=== PATIENT | male | born 1985 | race Caucasian/White ===

== ENCOUNTER 2018-12-02 18:56 | Emergency (ER) | payer BC, OTHER ==
[2018-12-02] MEDS ORDERED: methylPREDNISolone 125 MG* 2 ML VIAL IV ONE (19:04)
[2018-12-02] MEDS ORDERED: Famotidine IV* 10 MG/ML 2 ML (20 mg) IV SLOW PU ONE (19:04)
[2018-12-02] MEDS ORDERED: diPHENhydraMINE IV* 50 MG/ML 1 ml VIAL (BENADRYL) IV ONE (19:04)
[2018-12-02] MEDS ORDERED: EPINEPHRINE 1 MG/ML 1 ML VIAL IM ONE (19:06)
[2018-12-02] MEDS ORDERED: NS 0.9% 1000 ML** 1,000 ML IV ONE (19:06)
[2018-12-02] MEDS ORDERED: Ondansetron INJ* 2 MG/ML VIAL IV ONE (19:07)
--- NOTE | 2018-12-02 21:08 | ED ---
Allergic Reaction/Systemic - HPI Summary HPI Summary: 33-year-old male presents with allergic reaction today. He has a history of allergies to nuts and may have eaten some today. Admits chest tightness shortness of breath and a sore throat. He has hives across his torso and face. He denies any tongue swelling. He did not take anything. Denies any history of asthma or COPD. No abdominal pain. No nausea vomiting. States his symptoms are getting worse. - History of Current Complaint Chief Complaint: EDAllergicReaction Time Seen by Provider: 12/02/18 19:04 Pain Intensity: 0 - Allergies/Home Medications Allergies/Adverse Reactions: Allergies Allergy/AdvReac Type Severity Reaction Status Date / Time peanut Allergy Hives/Diff. Verified 12/02/18 19:27 Breathing/I tching PMH/Surg Hx/FS Hx/Imm Hx Endocrine/Hematology History: Denies: Hx Anticoagulant Therapy Cardiovascular History: Denies: Hx Myocardial Infarction Infectious Disease History: No Infectious Disease History: Denies: Traveled Outside the [place] in Last 30 Days - Family History Known Family History: Positive: Non-Contributory - Social History Alcohol Use: Daily Hx Substance Use: No Substance Use Type: Reports: None Hx Tobacco Use: Yes Smoking Status (MU): Never Smoked Tobacco Review of Systems Negative: Fever Positive: Sore Throat Negative: Chest Pain Positive: Shortness Of Breath Positive: Rash All Other Systems Reviewed And Are Negative: Yes Physical Exam Triage Information Reviewed: Yes Vital Signs On Initial Exam: Initial Vitals Temp Pulse Resp BP Pulse Ox 98.1 F 106 16 140/82 96 12/02/18 18:59 12/02/18 18:59 12/02/18 18:59 12/02/18 18:59 12/02/18 18:59 Vital Signs Reviewed: Yes Appearance: Positive: Well-Appearing Skin: Positive: Warm, Dry, Other - urticaria across body Head/Face: Positive: Normal Head/Face Inspection Eyes: Positive: Normal, EOMI, JUNE, Conjunctiva Clear ENT: Positive: Normal ENT inspection, Pharynx normal, TMs normal Respiratory/Lung Sounds: Positive: Clear to Auscultation, Breath Sounds Present Cardiovascular: Positive: Normal, RRR Abdomen Description: Positive: Nontender, Soft Bowel Sounds: Positive: Present Musculoskeletal: Positive: Normal Neurological: Positive: Normal Psychiatric: Positive: Normal Diagnostics - Vital Signs Vital Signs Temp Pulse Resp BP Pulse Ox 12/02/18 19:25 102 13 123/101 96 12/02/18 19:06 111 20 99 12/02/18 18:59 98.1 F 106 16 140/82 96 - Laboratory Lab Statement: Any lab studies that have been ordered have been reviewed, and results considered in the medical decision making process. Re-Evaluation - Re-Evaluation First Eval Re-Evaluation Time: 19:45 Change: Improved Comment: feeling better Second Eval Re-Evaluation Time: 21:47 Change: Unchanged Comment: no symtoms currently Allergic Reaction Course/Dx - Course Course Of Treatment: 33-year-old male presents with allergic reaction today. He has a history of allergies to nuts and may have eaten some today. Admits chest tightness shortness of breath and a sore throat. He has hives across his torso and face. He denies any tongue swelling. He did not take anything. Denies any history of asthma or COPD. No abdominal pain. No nausea vomiting. States his symptoms are getting worse. On exam has urticaria across her face. Has mild angioedema noted of the lips. Lungs some mild wheezing noted. Gave IV and Solu-Medrol Pepcid and Benadryl and symptoms resolved. Patient was observed for 3 hours with no repeat symptoms. Will prescribe steroids and Pepcid hydroxyzine to continue at home. Patient understands agrees the plan. - Diagnoses Differential Diagnosis/HQI/PQRI: Positive: Anaphylaxis, Local Allergic Reaction , Urticaria Provider Diagnoses: Allergic reaction Discharge - Sign-Out/Discharge Documenting (check all that apply): Patient Departure Patient Received Moderate/Deep Sedation with Procedure: No - Discharge Plan Condition: Good Disposition: HOME Prescriptions: EPINEPHrine [Epipen 2-Ronald] 0.3 mg IM ONCE PRN #1 inj PRN Reason: Allergy Symptoms Famotidine TAB* [Pepcid 20 MG TAB*] 20 mg PO BID #8 tab hydrOXYzine HCL TAB* [Atarax 25 MG TAB*] 25 mg PO QID PRN #8 tab PRN Reason: Hives predniSONE TAB* [Deltasone TAB*] 50 mg PO DAILY #4 tab Patient Education Materials: Anaphylaxis (ED) Referrals: No Primary Care Phys,NOPCP [Primary Care Provider] - Additional Instructions: Take Benadryl every 6 hours at night and hydroxyzine during the day every 6 hours Take Pepcid twice a day for 4 days Take steroid once a day for 4 days starting tomorrow Return to ED if shortness of breath, chest pain, or if develop any new or worsening symptoms - Billing Disposition and Condition Condition: GOOD Disposition: Home
[2018-12-02 23:04] VITALS: BP 111/68
== END 2018-12-02 23:03 | disposition home or self-care (01) ==
LOC: ED 18:56
DX: T78.40XA Allergy, unspecified, initial encounter (principal); R07.89 Other chest pain; R06.02 Shortness of breath; J02.9 Acute pharyngitis, unspecified; X58.XXXA Exposure to other specified factors, initial encounter; Z91.010 Allergy to peanuts
CPT/HCPCS: 96361; 96372; 96374; 96375; 99283; J1200; J2405; J2930